=== PATIENT | female | born 1985 | race Caucasian/White ===

== ENCOUNTER 2022-11-12 09:46 | Inpatient (IN) | payer OTHER ==
[2022-11-12] MEDS ORDERED: Sodium Chloride 0.9% 10 ML Syringe FLUSH PRN (11:05)
[2022-11-12] MEDS ORDERED: Ampicillin 2 GM in Sodium Chloride 0.9% 100 ML IV ONE (11:05)
[2022-11-12] MEDS ORDERED: Nalbuphine 10 MG/0.5 ML Syringe IVPUSH PRN (11:05)
[2022-11-12] MEDS ORDERED: Oxytocin/Lactated Ringers 10 UNIT/1,000 ML BAG IV SCH (11:15)
[2022-11-12 13:10] LABS: CORONAVIRUS COVID-19 NAA POSITIVE (NEGATIVE)
[2022-11-12] MEDS ORDERED: Ampicillin 1 GM in Sodium Chloride 0.9% 100 ML IV SCH (15:00)
[2022-11-12] MEDS ORDERED: fentaNYL 100 MCG/2 ML SDV EPIDUR PRN (15:01)
[2022-11-12] MEDS ORDERED: ePHEDrine 50 MG/ML SDV IVPUSH PRN (15:01)
[2022-11-12] MEDS ORDERED: diphenhydrAMINE 50 MG/ML SDV IVPUSH PRN (15:01)
[2022-11-12] MEDS ORDERED: Bupivacaine/fentaNYL/NS 100 ML Bag EPIDUR PRN (15:01)
[2022-11-12] MEDS: Lactated Ringers 1,000 ML IV SCH ×2 (15:07→16:15)
[2022-11-12] MEDS ORDERED: Lidocaine 1% 10 ML MDV ONE (18:00)
[2022-11-12] MEDS ORDERED: Misoprostol 200 MCG Tab ONE (18:14)
[2022-11-12] MEDS ORDERED: Misoprostol 100 MCG Tab PO ONE (18:16)
[2022-11-12] MEDS ORDERED: Sodium Chloride 0.9% 10 ML Syringe FLUSH SCH (21:00)
[2022-11-12] MEDS ORDERED: Witch Hazel Medicated Pads 40/Jar TOP PRN (22:06)
[2022-11-12] MEDS ORDERED: Benzocaine/Menthol 20%-0.5% Spray 78 GM Cannister TOP PRN (22:06)
[2022-11-12] MEDS ORDERED: Acetaminophen 325 MG Tab PO PRN (22:06)
[2022-11-12] MEDS ORDERED: Ibuprofen 600 MG Tab PO PRN (22:06)
[2022-11-13] MEDS ORDERED: Docusate Sodium 100 MG Cap PO ONE (21:00)
== END 2022-11-14 09:45 | disposition home or self-care (01) | DRG 805 ==
LOC: JD.OBCHECK 09:46 → JD.OB 09:49 → JD.OBCHECK 11:29 → JD.OB 11:30 → OBSVTOIN 18:05 → JD.OB 18:06 → JD.MS 11-13 17:16 → JD.OB 11-13 17:18
PROVIDERS: ADMIT Obstetrics & Gynecology; ATTEND Obstetrics & Gynecology
PROC: 10E0XZZ Delivery of Products of Conception, External Approach (ICD-10-PCS; principal; 2022-11-12)
PROC: 10907ZC Drainage of Amniotic Fluid, Therapeutic from Products of Conception, Via Natural or Artificial Opening (ICD-10-PCS; 2022-11-12)
PROC: 3E0R3BZ Introduction of Anesthetic Agent into Spinal Canal, Percutaneous Approach (ICD-10-PCS; 2022-11-12)
PROC: 00HU33Z Insertion of Infusion Device into Spinal Canal, Percutaneous Approach (ICD-10-PCS; 2022-11-12)
DX: O98.52 Other viral diseases complicating childbirth (principal); U07.1 COVID-19; Z37.0 Single live birth; O70.1 Second degree perineal laceration during delivery; Z3A.40 40 weeks gestation of pregnancy
CPT/HCPCS: 0241U; 36415; 51702; 59025; 59409; 85025; 86592; A9270-GY; J0290; J2590; J3010; J7120